=== PATIENT | female | born 1935 | race Two or more races ===

== ENCOUNTER 2017-01-31 21:48 | Emergency (ER) | payer OTHER ==
[~2017-01-31] VITALS: Ht 152.4 cm; Wt 40.8 kg
[~2017-01-31 21:48] MED LIST: LEVO50TA7 PO; MEMA5TAB2; METO25TA5 PO; PLAVIX PO; SIMV-8
[2017-01-31] MEDS ORDERED: ATROPINE SULF 0.5 MG/5ML SYR IV ONE (21:53)
[2017-01-31] MEDS ORDERED: DEXTROSE (50%) 50ML SYRG IV ONE (21:53)
[2017-01-31] MEDS ORDERED: DOPamine 1600MCG/ML 250 ML IV ONE ×2 (22:16→22:30)
[2017-01-31] MEDS ORDERED: MIDAZOLAM DRIP 50 mg/50mL 50 ML IV SCH (22:18)
[2017-01-31] MEDS ORDERED: SODIUM CHLORIDE 0.9% 1,000 ML IV ONE (22:30)
[2017-01-31] MEDS ORDERED: NOREPINEPHRINE BITARTRATE 250 ML IV SCH (22:30)
[2017-01-31 22:55] LABS: Basophils # (auto) 0 uL; Eosinophils # (auto) 0 uL; Eosinophils % (auto) 0.1 % (0.0-7.0); Hematocrit 23.6 % (36.0-46.0); Hemoglobin 7.7 g/dL (12.2-16.2); Lymphocytes # (auto) 0.2 uL; Lymphocytes % (auto) 5.5 % (10.0-50.0); Mean Corpuscular Hemoglobin 28.5 pg (28.0-32.0); Mean Corpuscular Hgb Conc. 32.4 g/dL (32.0-36.0); Mean Platelet Volume 7.6 fL (6.9-10.8); Monocytes # (auto) 0 uL; Monocytes % (auto) 0.5 % (0.0-12.0); Neutrophils # (auto) 3.2 uL; Neutrophils % (auto) 93.9 % (37.0-80.0); Platelet Count (auto) 161 10^3/uL (140-450); Red Cell Distribution Width 15.4 % (11.8-14.3); White Blood Cell 3.4 10^3/uL (4.4-10.8)
[2017-01-31 23:11] LABS: Albumin 1.3 g/dL (3.4-5.0); BUN/Creatinine Ratio 20.4; Calcium 6.6 mg/dL (8.5-10.1); INR 1.4 (0.9-1.15); Magnesium 2.2 mg/dL (1.6-2.6); Partial Thromboplastin Time 38.4 sec (22.64-33.71); Potassium 3.9 mmol/L (3.5-5.1); Prothrombin Time 15.3 sec (9.37-12.3)
[2017-01-31 23:12] LABS: Lactic Acid w/Reflex 6.7 mmol/L (0.4-2.0)
[2017-01-31 23:16] LABS: Bilirubin, Total 0.5 mg/dL (0.2-1.0); Total Protein 4.5 g/dL (6.4-8.2)
[2017-01-31 23:21] LABS: Urine Bilirubin Negative (Negative); Urine Blood 2+ /uL (Negative); Urine Color Yellow (Yellow); Urine Glucose TRACE mg/dL (Normal); Urine Hyaline Cast MANY /lpf (0 - 2); Urine Ketone TRACE (Negative); Urine Mucus MODERATE (None Seen); Urine Nitrite Negative (Negative); Urine RBC 9 /hpf (0 - 4); Urine Squamous Epithelial Cell FEW /hpf (<5); Urine WBC Clumps PRESENT /hpf (None Seen); Urine pH 6.5 (5.0-8.0)
[2017-01-31] MEDS ORDERED: SODIUM BICARBONATE 8.4 % INJ 50ML VIAL IV ONE (23:30)
[2017-01-31 23:46] LABS: REFLEX LACTIC ACID YES OR NO YES
[2017-02-01 02:18] VITALS: BP 46/30
[2017-02-01] MEDS ORDERED: MORPHINE SULF INJ 2 MG/ML SYRINGE 1ML IV ONE (04:30)
== END 2017-02-01 05:11 | disposition expired ==
LOC: EDBD 21:48 → ER 21:52
DX: I46.9 Cardiac arrest, cause unspecified (principal); I10 Essential (primary) hypertension; E07.89 Other specified disorders of thyroid; E78.5 Hyperlipidemia, unspecified; K21.9 Gastro-esophageal reflux disease without esophagitis; I25.2 Old myocardial infarction; Z98.61 Coronary angioplasty status; Z86.73 Personal history of transient ischemic attack (TIA), and cerebral infarction without residual deficits
CPT/HCPCS: 31500; 36415; 36600; 51702; 71010; 80053; 81001; 82805; 83605; 83735; 84484; 85025; 85610; 85730; 87040; 87070; 87077; 87186; 87205; 93005; 96360; 96361; 99291; J0461; J1265; J7042; 94002